=== PATIENT | female | born 1995 | race Caucasian/White ===

== ENCOUNTER → 2021-06-22 00:45 | Observation (INO) ==
[2021-06-22 00:02] LABS: Bacteria,Urine Few per hpf (None-Few); Bilirubin,Urine Negative (Negative); Blood,Urine Negative (Negative); Clarity,Urine Clear (Clear); Color,Urine Light-Yellow (Yellow); Glucose,Urine (UA) Normal (Normal); Ketones,Urine Negative (Negative); Leukocyte Esterase,Urine Small (Negative); Mucus,Urine Few per lpf (None-Few); Nitrite,Urine Negative (Negative); Protein,Urine Trace mg/dL (Neg-Trace); RBC,Urine 0-3 per hpf (0-3); Specific Gravity,Urine 1.019 (1.010-1.025); Squamous Epithelial Cell,Urine Few per hpf (None-Few); Urobilinogen,Urine Normal (Normal)
[~2021-06-22 00:45] MED LIST: FLU Vac QV 21-22 (6Month+)/PF 0.5 ML SYRINGE IM ONE; Famotidine 20 MG/2 ML VIAL ONE; Metoclopramide 10 MG/2 ML VIAL ONE
== END | disposition home or self-care (01) ==
LOC: 1NENULAB
PROVIDERS: ADMIT Advanced Practice Midwife; ATTEND Advanced Practice Midwife

== ENCOUNTER → 2021-07-06 04:32 | Observation (INO) | END | disposition home or self-care (01) | LOC: 1NENULAB | PROVIDERS: ADMIT Advanced Practice Midwife; ATTEND Advanced Practice Midwife ==

== ENCOUNTER 2021-07-11 09:51 | Inpatient (IN) ==
[2021-07-11] MEDS ORDERED: *HR* Nalbuphine 10 MG/ML AMPUL IV PRN (10:09)
[2021-07-11] MEDS ORDERED: Naloxone 0.4 MG/ML INJ IVP PRN (10:09)
[2021-07-11] MEDS ORDERED: Famotidine 20 MG/2 ML VIAL IVP PRN (10:09)
[2021-07-11] MEDS ORDERED: Ondansetron 4 MG/2 ML VIAL IVP PRN (10:09)
[2021-07-11] MEDS ORDERED: Metoclopramide 10 MG/2 ML VIAL IVP PRN (10:09)
[2021-07-11] MEDS ORDERED: Ringers Solution, Lactated 1,000 ML IVC SCH (10:15)
[2021-07-11 11:29] LABS: Basophils % 0.2 %; Eosinophils # 0.2 K/mcL (0.0-0.6); Eosinophils % 2.2 %; Hemoglobin 12.4 g/dL (11.5-15.4); Immature Granulocytes % 0.2 % (0-4); Lymphocytes # 1.2 K/mcL (0.6-4.6); Lymphocytes % 13.4 %; Mean Corpuscular HGB Conc 32.6 g/dL (31.6-35.5); Mean Platelet Volume 11.2 fL (9.4-12.4); Monocytes # 0.9 K/mcL (0.0-1.3); Monocytes % 10.1 %; Neutrophils # 6.7 K/mcL (1.6-8.9); Platelet Count 239 K/mcL (140-400); Red Blood Count 4.27 M/mcL (3.82-4.97); Red Cell Distribution Width 13.7 % (11.5-14.5); Segmented Neutrophils % 73.9 %; White Blood Count 9.1 K/mcL (4.3-11.1)
[2021-07-11 11:40] LABS: Amphetamine Screen,Urine Negative ng/mL (Cutoff=1000); Barbiturate Screen,Urine Negative ng/mL (Cutoff=200); Benzodiazepines Screen,Urine Negative ng/mL (Cutoff=200); Cannabinoid Screen,Urine Negative ng/mL (Cutoff = 50); Cocaine Screen,Urine Negative ng/mL (Cutoff= 300); Opiate Screen,Urine Negative ng/mL (Cutoff=300); Phencyclidine Screen,Urine Negative ng/mL (Cutoff=25)
[2021-07-11 12:01] LABS: Influenza A PCR Negative (Negative); Influenza B PCR Negative (Negative); Resp. Syncytial Virus PCR Negative (Negative)
[2021-07-11 12:13] LABS: SARS-CoV-2 by PCR (In House) Negative (Negative)
[2021-07-11] MEDS ORDERED: EPHEDrine 50 MG/ML VIAL IVP PRN (12:28)
[2021-07-11] MEDS ORDERED: Epidural Premix (fent/bupiv) 110 ML EP SCH (12:30)
[2021-07-11] MEDS ORDERED: Epidural Premix (fent/bupiv) 110 ML EP ONE (12:31)
[2021-07-11] MEDS ORDERED: Oxytocin 20 units/ LR 1000 mL 20 UNIT/1,000 ML BAG IVC ONE (14:29)
[2021-07-11] MEDS ORDERED: Lanolin 7 G OINT...G. TP PRN (15:22)
[2021-07-11] MEDS ORDERED: Benzocaine/Menthol 56 GM AEROSOL SPRAY TP PRN (15:22)
[2021-07-11] MEDS ORDERED: Ondansetron ODT 4 MG TAB.RAPDIS SL PRN (15:22)
[2021-07-11] MEDS ORDERED: Oxytocin 20 units/ LR 1000 mL 20 UNIT/1,000 ML BAG IVC SCH (15:22)
[2021-07-11] MEDS ORDERED: Rho Immune Globulin 1,500 UNIT SYRINGE IM PRN (15:22)
[2021-07-11] MEDS ORDERED: Measles/Mumps/Rubella Vacc 0.5 ML VIAL SQ PRN (15:22)
[2021-07-11] MEDS: Acetaminophen 325 MG TABLET PO SCH (20:08)
[2021-07-11] MEDS: Ibuprofen 600 MG TABLET PO SCH (20:08)
[2021-07-12 08:59] VITALS: BP 132/85; PULSE 74; TEMP 98.1; O2SAT 96
[2021-07-12] MEDS ORDERED: Prenatal Vit/FA 1 EACH TABLET PO SCH ×2 (09:00)
[2021-07-12] MEDS: Ibuprofen 600 MG TABLET PO SCH (09:32)
[2021-07-12] MEDS: Acetaminophen 325 MG TABLET PO SCH (09:32)
== END 2021-07-12 15:45 | disposition home or self-care (01) | DRG 807 ==
LOC: 1NENULAB 09:51 → 1NENUOBS 17:27
PROVIDERS: ADMIT Registered Nurse; ATTEND Registered Nurse